=== PATIENT | female | born 1940 | race Caucasian/White ===

== ENCOUNTER → 2016-08-30 | Outpatient (CLI) | payer MEDICARE, OTHER | END | disposition home or self-care (01) | LOC: GMAB 10:37 | PROVIDERS: ATTEND Family Medicine | DX: E03.9 Hypothyroidism, unspecified (principal) ==

== ENCOUNTER → 2017-07-25 | Outpatient (CLI) | payer MEDICARE, OTHER ==
--- NOTE | 2017-07-25 10:03 | RAD ---
EXAM DESCRIPTION: Hand,Right 3 Views CLINICAL HISTORY: 77 years Female, PAIN COMPARISON: None. FINDINGS: 3 views of the left hand show no acute fracture or malalignment. There is severe joint space narrowing and productive change involving multiple interphalangeal joints. Gull-wing appearance is noted at several locations, most apparent at the fourth PIP joint suggestive of erosive osteoarthritis. Additional joint space narrowing is noted at the triscaphe and first CMC joints. The soft tissues are unremarkable. IMPRESSION: Advanced polyarticular degenerative changes as detailed above. Erosive osteoarthritis should also be considered. Electronically signed by: Judson Hamilton MD 07/25/2017 10:01 AM CDT
--- NOTE | 2017-07-25 10:04 | RAD ---
EXAM DESCRIPTION: Fingers,Right CLINICAL HISTORY: 77 years Female, PAIN COMPARISON: None. FINDINGS: 3 views of the right index finger show no acute fracture or malalignment. There is joint space narrowing and productive change involving the second PIP and DIP joints. Fairly advanced joint space narrowing involves the second MCP joint. No bony demineralization, and no definite subchondral erosion. No soft tissue abnormality. Degenerative changes at the triscaphe and first CMC joint are also noted. IMPRESSION: Advanced degenerative changes in the right index finger, worse at the second DIP joint. Electronically signed by: Judson Hamilton MD 07/25/2017 10:03 AM CDT
--- NOTE | 2017-07-25 11:14 | RAD ---
EXAM DESCRIPTION: Knee,Left Complete CLINICAL HISTORY: 77 years, Female, PAIN IN LEFT KNEE COMPARISON: None TECHNIQUE: 4 views of the left knee FINDINGS: No fracture or dislocation. Bones appear normally mineralized with normal trabecular pattern. Narrowed appearance of medial more than lateral compartments on frontal view. There is mild medial and lateral joint line spurring with spurring at the head of the proximal fibula. Lateral view shows normal position of the patella. Mild posterior patellar spurring. No suprapatellar knee joint effusion. Normal contour of quadriceps and patellar tendons. There is spurring at the tibial spines and in the intercondylar notch and along the posterior aspects of the femoral condyles and tibial plateau. No abnormal patellar tilt or subluxation on patellar sunrise view. Patellofemoral joint appears narrowed. IMPRESSION: Negative for fracture or dislocation. Electronically signed by: Mata Gaona MD 07/25/2017 11:13 AM CDT
--- NOTE | 2017-07-25 11:15 | RAD ---
EXAM DESCRIPTION: Pelvis CLINICAL HISTORY: 77 years Female, PAIN IN RIGHT HIP COMPARISON: None. TECHNIQUE: Single AP x-ray view of pelvis and hips FINDINGS: Marked degenerative changes are seen at the pubic symphysis with parasymphyseal sclerosis. There is mild narrowing of the hip joints. Degenerative changes are seen at the SI joints and the lower lumbar spine. Extensive phleboliths in the pelvis. No fracture or dislocation. IMPRESSION: Advanced degenerative changes in the pubic symphysis. Negative for fracture or dislocation. Electronically signed by: Mata Gaona MD 07/25/2017 11:14 AM CDT
== END ==
LOC: RAD 08:41
PROVIDERS: ATTEND Orthopaedic Surgery
DX: M25.561 Pain in right knee (principal); M25.562 Pain in left knee; M25.551 Pain in right hip; M25.552 Pain in left hip; M79.641 Pain in right hand; M79.644 Pain in right finger(s)

== ENCOUNTER → 2018-09-26 | Outpatient (CLI) | payer MEDICARE, OTHER | LOC: GMAE 14:13 | PROVIDERS: ATTEND Family Medicine | DX: R07.2 Precordial pain (principal) ==

== ENCOUNTER → 2018-10-11 | Outpatient (CLI) | payer MEDICARE, OTHER ==
--- NOTE | 2018-10-16 16:56 | MAM ---
EXAM DESCRIPTION: 3D Screening BILATERAL : Digital Mammography. CLINICAL HISTORY: 78 years Female SCREEN . No complaints. No personal or family history of breast cancer. Childbirth. Hysterectomy 30+ years ago. HRT 5 or more years ago.. Lifetime risk of developing breast cancer (Tyrer-Cuzick model)(%): 2.5. COMPARISON: Baseline study at this facility. TECHNIQUE: Bilateral CC and MLO projection full-field images, digital tomosynthesis mammographic technique. Bilateral digital 2-D full-field MLO images. CAD not available for tomosynthesis or 2-D images. FINDINGS: The breast parenchymal density pattern is: Heterogeneously dense breast tissue, which may obscure small masses. No skin thickening or nipple retraction. Bilateral vascular calcifications. Bilateral solitary parenchymal calcifications. Focal asymmetry versus mass density in the retroareolar left breast.. No new focal, stellate mass or density, focal asymmetry , and no suspicious microcalcifications right breast. IMPRESSION: BI-RADS CATEGORY: 0 - INCOMPLETE- Need additional imaging evaluation. FOLLOW-UP: Recall for additional imaging: Full-field diagnostic left breast LM tomosynthesis images. Targeted left breast ultrasound in the region of interest. Written communication concerning the IMPRESSION and Follow-up, will be mailed to the patient and referring health care provider. Electronically signed by: Armando Lopez MD 10/16/2018 4:54 PM CDT
== END ==
LOC: MAMMO 10:58
PROVIDERS: ATTEND Family Medicine
DX: Z12.31 Encounter for screening mammogram for malignant neoplasm of breast (principal)

== ENCOUNTER 2019-02-01 17:57 | Emergency (ER) | payer MEDICARE, OTHER ==
--- NOTE | 2019-02-01 18:08 | ED.PDOC ---
History of Present Illness - General Time Seen by Provider: 02/01/19 18:01 - History of Present Illness Initial Comments: 78 year old female with present to the er after a fall. patient fell from her porch down some stairs. patient did not loose consciousness, cant recall hitting her head, but admits landing on her left wrist patient arrived POV, and is walking on a steady gait there is an obvious deformity seen on initial evaluation Allergies/Adverse Reactions: Allergies NO KNOWN ALLERGY Allergy (Verified 10/15/12 14:48) Home Medications: Ambulatory Orders Alendronate Sodium [Fosamax] 70 mg PO WKLY 11/12/13 Amlodipine Besylate-Benazepril [Lotrel 5-10 mg] 1 cap PO DAILY 11/12/13 Estradiol 2 mg PO DAILY 11/12/13 Gabapentin 300 mg PO BEDTIME 11/12/13 Hydrochlorothiazide 12.5 mg PO DAILY 11/12/13 Levothyroxine Sodium 100 each PO DAILY 11/12/13 Nortriptyline HCl 100 mg PO BEDTIME 11/12/13 Pantoprazole Tablet [Protonix] 40 mg PO DAILY 11/12/13 Prednisone 2.5 mg PO DAILY 11/12/13 Famotidine [Pepcid AC Maximum Strengt] 20 mg PO BID 5 Days #10 tab 02/01/19 Naproxen [EC-Naproxen] 500 mg PO BID 5 Days #10 tab 02/01/19 Review of Systems - Review of Systems Constitutional: Denies: chills, diaphoresis, fever, malaise EENTM: Denies: eye pain, blurred vision, tearing, ear pain, ear discharge, nose pain, nose congestion, throat pain, throat swelling, mouth pain, mouth swelling Respiratory: Denies: cough, orthopnea, short of breath, stridor, wheezing Cardiology: Denies: chest pain, edema, palpitations, syncope Gastrointestinal/Abdominal: Denies: abdominal pain, diarrhea, nausea, vomiting Genitourinary: Denies: discharge, dysuria, frequency, hematuria, pain Musculoskeletal: Denies: back pain, gout, joint pain, joint swelling, muscle pain, muscle stiffness, neck pain Skin: Denies: change in color, change in hair/nails, dryness, lesions, lumps, rash Neurological: Denies: anxiety, depressed, emotional problems, headache, numbne ss, paresthesia, pre-existing deficit, tingling, tremors, weakness Endocrine: Denies: excessive sweating, flushing, intolerance to cold, intolerance to heat, increased hunger, increased thirst, increased urine, unexplained weight gain, unexplained weight loss Hematologic/Lymphatic: Denies: anemia, blood clots, easy bleeding, easy bruising, swollen glands Past Medical History (General) - Patient Medical History Hx Congestive Heart Failure: No Hx Diabetes: No Family Medical History - Family History Mother Family History: No Known Physical Exam - Physical Exam General Appearance: Alert, Well Developed, Well Groomed, Well Hydrated, Well Nourished Eyes, Ears, Nose, Throat Exam: PERRL/EOMI, other - small abrasion seen in the left cheek Neck: non-tender, full range of motion, supple Cardiovascular/Respiratory: regular rate, rhythm, no M/R/G, normal peripheral pulses, no JVD, normal breath sounds, no respiratory distress Abdominal Exam: non-tender, no organomegaly, no hernia Back Exam: normal inspection, no CVA tenderness Shoulder Exam: normal inspection Elbow/Forearm Exam: normal inspection Wrist Exam: pain - deformity noted on patient left wrist with good pulses, , swelling Hand Exam: normal inspection Mental Status: alert, oriented x 3, depressed affect Skin Exam: normal color, warm/dry Progress - Progress Progress: 02/01/19 18:09 this is a patient that presents after mechanical fall, patient with obvious wrist deformity since on this could take as a distracting injury, and there is evidence of facial trauma, im going to order a head and cervical spine ct 02/01/19 19:18 patient was done without complications, 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 Departure - Departure Clinical Impression: Colles' fracture of left radius Qualifiers: Encounter type: initial encounter Fracture type: closed Qualified Code(s): S52.532A - Colles' fracture of left radius, initial encounter for closed fracture Disposition: Discharge to Home or Self Care Condition: Fair Instructions: Colles' Fracture (DC) Referrals: AIDA YORK MD [Primary Care Provider] - 1-2 Weeks Ruel Reddy MD [Active Staff] - 1-2 Days Prescriptions: Famotidine [Pepcid AC Maximum Strengt] 20 mg PO BID 5 Days #10 tab Naproxen [EC-Naproxen] 500 mg PO BID 5 Days #10 tab Home Medications: Ambulatory Orders Alendronate Sodium [Fosamax] 70 mg PO WKLY 11/12/13 Amlodipine Besylate-Benazepril [Lotrel 5-10 mg] 1 cap PO DAILY 11/12/13 Estradiol 2 mg PO DAILY 11/12/13 Gabapentin 300 mg PO BEDTIME 11/12/13 Hydrochlorothiazide 12.5 mg PO DAILY 11/12/13 Levothyroxine Sodium 100 each PO DAILY 11/12/13 Nortriptyline HCl 100 mg PO BEDTIME 11/12/13 Pantoprazole Tablet [Protonix] 40 mg PO DAILY 11/12/13 Prednisone 2.5 mg PO DAILY 11/12/13 Famotidine [Pepcid AC Maximum Strengt] 20 mg PO BID 5 Days #10 tab 02/01/19 Naproxen [EC-Naproxen] 500 mg PO BID 5 Days #10 tab 02/01/19 Additional Instructions: keep extremity elevated and follow up with ortho
[2019-02-01 18:11] VITALS: BP 133/73; TEMP 97.5; O2SAT 97
[2019-02-01] MEDS ORDERED: HYDROmorphone HCL INJ 2 MG/ML VIAL IM ONE (18:20)
[2019-02-01] MEDS ORDERED: ONDANSETRON 4 MG TAB PO ONE (18:20)
[2019-02-01] MEDS ORDERED: ONDANSETRON ODT 8 MG TAB SL ONE (18:25)
[2019-02-01] MEDS ORDERED: LIDOCAINE 1% 10 ML VIAL INJ ONE ×2 (18:26→18:27)
--- NOTE | 2019-02-01 18:49 | CT ---
EXAM DESCRIPTION: Head CLINICAL HISTORY: 78 years Female fall TECHNIQUE: Axial contrast CT head with coronal and sagittal reformats. All CT scans at this facility use dose modulation, iterative reconstruction, and/or weight based dosing when appropriate to reduce radiation dose to as low as reasonably achievable. COMPARISON: None. FINDINGS: Diffuse parenchymal volume loss. Chronic small vessel disease. No intracranial hemorrhage, midline shift, mass, mass effect, hydrocephalus or extra-axial fluid collection. No obvious large territorial infarction. No abnormal enhancement following contrast administration. Orbits are normal. Paranasal sinuses and mastoid air cells are clear. Osseous structures and soft tissues are unremarkable. IMPRESSION: No acute findings. Electronically signed by: Avel Schroeder MD 02/01/2019 6:47 PM CDT
--- NOTE | 2019-02-01 18:54 | CT ---
EXAM DESCRIPTION: Cervical Spine CLINICAL HISTORY: 78 years Female fall TECHNIQUE: Noncontrast cervical spine CT with sagittal and coronal reconstructions. All CT scans at this facility use dose modulation, iterative reconstruction, and/or weight based dosing when appropriate to reduce radiation dose to as low as reasonably achievable. COMPARISON: None FINDINGS: No acute fracture. Alignment is anatomic. Multilevel degenerative changes. No high-grade spinal canal stenosis. Soft tissues are unremarkable. Visualized lung apices are clear. IMPRESSION: No acute findings. Electronically signed by: Avel Schroeder MD 02/01/2019 6:52 PM CDT
--- NOTE | 2019-02-01 18:58 | RAD ---
EXAM DESCRIPTION: Wrist, left 3 Views; 3 views CLINICAL HISTORY: 78 years Female, FALL COMPARISON: None. FINDINGS: Comminuted, impacted and intra-articular distal radius fracture with dorsal displacement of the distal fracture fragments and carpal bones. Displaced styloid process fracture. Severe degenerative changes of the first carpometacarpal joint. Cystic changes of the lunate. Diffuse surrounding soft tissue swelling. IMPRESSION: Distal radius and ulna fractures as described above. Electronically signed by: Avel Schroeder MD 02/01/2019 6:56 PM CDT
--- NOTE | 2019-02-01 19:22 | RAD ---
: 1940. Technique: 3 views of the left wrist. Clinical history: post reduction . Findings: Comparing to previous exam today at 6:13 PM. Moderate soft tissue swelling. Comminuted impacted fracture distal radius. Improved alignment after external reduction. Slightly displaced 5 mm ulnar styloid fracture avulsion. No dislocation. Osteopenia. Severe narrowing of the first carpometacarpal joint with osteophyte and sclerosis. Remodeling of the trapezoid and trapezium noted. Impression: 1. Improved alignment distal radial fracture. Ulnar styloid fracture. Electronically signed by: Jose Ibarra MD 02/01/2019 7:21 PM CDT
== END 2019-02-01 19:36 | disposition home or self-care (01) ==
LOC: ER 17:57
DX: S52.532A Colles' fracture of left radius, initial encounter for closed fracture (principal); S00.81XA Abrasion of other part of head, initial encounter; M47.812 Spondylosis without myelopathy or radiculopathy, cervical region; W10.9XXA Fall (on) (from) unspecified stairs and steps, initial encounter; Y92.008 Other place in unspecified non-institutional (private) residence as the place of occurrence of the external cause; Z79.899 Other long term (current) drug therapy
CPT/HCPCS: 70450; 72125; 73110; J1170

== ENCOUNTER → 2019-02-12 | Outpatient (CLI) | payer MEDICARE, OTHER ==
--- NOTE | 2019-02-12 15:35 | RAD ---
EXAM DESCRIPTION: Wrist,Left 3 Views CLINICAL HISTORY: 78 years Female, CLOSED FX OF DISTAL RADIUS COMPARISON: Radiographs of the left wrist dated 02/01/2019. FINDINGS: The visualized bones are well-mineralized. Comminuted fracture of the distal metaphysis of the radius and ulnar styloid process are again identified. Diffuse soft tissue swelling of the wrist. IMPRESSION: Comminuted fracture of the distal metaphysis of the radius and ulnar styloid process are again identified. Electronically signed by: Linda Alfonso MD 02/12/2019 3:33 PM CDT
== END ==
LOC: RAD 10:10
PROVIDERS: ATTEND Orthopaedic Surgery
DX: S52.502D Unspecified fracture of the lower end of left radius, subsequent encounter for closed fracture with routine healing (principal)

== ENCOUNTER 2019-04-18 11:13 | Emergency (ER) | payer MEDICARE, OTHER ==
[2019-04-18 12:03] VITALS: O2SAT 94
--- NOTE | 2019-04-18 12:36 | RAD ---
EXAM DESCRIPTION: Chest,2 Views CLINICAL HISTORY: 79 years Female Cough COMPARISON: 09/26/2018. FINDINGS: The cardiomediastinal silhouette appears unremarkable. No consolidating infiltrates or pleural effusions. No pneumothorax. Degenerative changes in the spine. IMPRESSION: No acute abnormality is identified. Electronically signed by: Wayne Conrad MD 04/18/2019 12:35 PM [employer]
--- NOTE | 2019-04-18 12:40 | RAD ---
EXAM DESCRIPTION: Lumbar Spine 3 Views (accession [id number]), Sacrum Coccyx (accession [id number]) CLINICAL HISTORY: 79 years ,Female Fall COMPARISON: None. TECHNIQUE: Three views of the sacrum/coccyx and three views of the lumbar spine. FINDINGS: There is minimal curvature in the lumbar spine convex left. There is mild anterolisthesis of L5 on S1 likely degenerative. There are degenerative changes of the facets most pronounced in the lower lumbar spine. No definite acute fracture is identified. IMPRESSION: No acute fracture is identified. Electronically signed by: Wayne Conrad MD 04/18/2019 12:39 PM [facility]
--- NOTE | 2019-04-18 12:40 | RAD ---
EXAM DESCRIPTION: Lumbar Spine 3 Views (accession [id number]), Sacrum Coccyx (accession [id number]) CLINICAL HISTORY: 79 years ,Female Fall COMPARISON: None. TECHNIQUE: Three views of the sacrum/coccyx and three views of the lumbar spine. FINDINGS: There is minimal curvature in the lumbar spine convex left. There is mild anterolisthesis of L5 on S1 likely degenerative. There are degenerative changes of the facets most pronounced in the lower lumbar spine. No definite acute fracture is identified. IMPRESSION: No acute fracture is identified. Electronically signed by: Wayne Conrad MD 04/18/2019 12:39 PM [facility]
--- NOTE | 2019-04-18 13:38 | ED.PDOC ---
History of Present Illness - General Chief Complaint: Back Pain or Injury Stated Complaint: back pain and cough, Time Seen by Provider: 04/18/19 11:44 - History of Present Illness Initial Comments: 79yo F presents for evaluation of upper respiratory congestion and cough (onset 1 week ago), as well as buttock and low back discomfort s/p fall (3 days ago). The patient believed her respiratory symptoms initially were related to a llergies, but symptoms have been persistent despite OTC treatment. She denies SOB or fever. No sick contacts. The patient's fall was from standing 3 days ago. She fell onto her buttock on a carpeted surface. She has had persistent tailbone discomfort since that time. No numbness, weakness, significant back pain. She denies syncope, headache, neck pain. No other reported issues. Allergies/Adverse Reactions: Allergies NO KNOWN ALLERGY Allergy (Verified 10/15/12 14:48) Home Medications: Ambulatory Orders Estradiol 2 mg PO DAILY 11/12/13 Levothyroxine Sodium 100 each PO DAILY 11/12/13 Azithromycin Tab [Zithromax Tab] 250 mg PO DAILY #4 tab 04/18/19 Buspirone HCl [Buspirone Hydrochloride] 7.5 mg PO 04/18/19 Desvenlafaxine [Desvenlafaxine ER] 50 mg PO 04/18/19 Guaifenesin 400 mg PO 04/18/19 Review of Systems - Review of Systems Constitutional: Denies: chills, fever EENTM: States: nose congestion. Denies: eye pain, double vision, ear pain, throat pain Respiratory: States: cough. Denies: short of breath, wheezing Cardiology: Denies: chest pain, edema, palpitations Gastrointestinal/Abdominal: Denies: abdominal pain, nausea Genitourinary: Denies: dysuria, frequency Musculoskeletal: States: back pain, other - Buttock/tailbone pain. Denies: joint pain, joint swelling, neck pain Skin: Denies: change in color, rash Neurological: Denies: headache, numbness, paresthesia, weakness Endocrine: States: no symptoms reported Hematologic/Lymphatic: States: no symptoms reported Past Medical History (General) - Patient Medical History Hx Seizures: No Hx Stroke: No Hx Dementia: No Hx Asthma: No Hx of COPD: No Hx Cardiac Disorders: No Hx Congestive Heart Failure: No Hx Pacemaker: No Hx Hypertension: Yes Hx Thyroid Disease: Yes Hx Diabetes: No Hx Gastroesophageal Reflux: No Hx Renal Disease: No Hx Cancer: No Hx of HIV: No Hx Hepatitis C: No Hx MRSA: No Surgical History: appendectomy, Hysterectomy, other - Vaccination History Hx Tetanus, Diphtheria Vaccination: Yes Hx Influenza Vaccination: Yes Hx Pneumococcal Vaccination: Yes Immunizations Up to Date: No - Social History Hx Tobacco Use: No Hx Chewing Tobacco Use: No Hx Alcohol Use: No Hx Substance Use: No Hx Substance Use Treatment: No Hx Depression: No Feels Threatened In Home Enviroment: No Feels Threatened In a Relationship: No Hx Physical Abuse: No Hx Emotional Abuse: No Hx Suspected Abuse: No - Activities of Daily Living Hospice Agency (if applicable):: None - Female History Patient is a Female of Child Bearing Age (10 -59 yrs old): No Family Medical History - Family History Mother Family History: No Known Physical Exam - Physical Exam General Appearance: Alert, Comfortable, No apparent distress Ears, Nose, Throat: normal pharynx, nasal congestion Neck: non-tender, full range of motion, supple Respiratory: chest non-tender, lungs clear, no respiratory distress, other - Intermittent dry cough Cardiovascular/Chest: normal peripheral pulses, regular rate, rhythm, no edema Gastrointestinal/Abdominal: non tender, soft, rebound Back Exam: normal inspection, no CVA tenderness, no vertebral tenderness, other - Lumbar muscular tenderness Extremity: normal range of motion, normal capillary refill, other - Sacral/coccyx tenderness, no crepitus. Pelvis is stable. No hip tenderness bilaterally. Neurologic: no motor/sensory deficits, alert, normal mood/affect, oriented x 3, other - Ambulatory, nl gait Skin Exam: normal color, warm/dry Progress - Progress Progress: DDX: URI, pneumonia, bronchitis, sinusitis, contusion, strain, sprain, fracture, allergies. 04/18/19 13:57 The patient feels improved at this time. No acute XR findings including XR sacral, lumbar and CXR. Given persistent URI symptoms > 1 weeks, will cover with abx. Initial dose was given in the ED. Results discussed with the patient extensively. She is comfortable with the plan for discharge and close outpatient followup. Discussed that occult ligament or bone injuries remain a possibility and that additional imagining may be indicated for persistent symptoms. Return warnings discussed. All questions answered. 04/18/19 14:01 [id number] - Results/Orders Results/Orders: Laboratory Results - last 24 hr 04/18/19 04/18/19 12:02 12:02 WBC 6.3 RBC 4.36 Hgb 13.0 Hct 40.0 MCV 91.8 MCH 29.9 MCHC 32.6 L RDW 13.4 Plt Count 165 MPV 8.8 Absolute Neuts (auto) 4.30 Absolute Lymphs (auto) 1.10 Absolute Monos (auto) 0.70 Absolute Eos (auto) 0.20 Absolute Basos (auto) 0.00 Neutrophils % 68.9 Lymphocytes % 17.5 L Monocytes % 10.5 H Eosinophils % 2.8 Basophils % 0.3 Sodium 135 Potassium 4.0 Chloride 100 L Carbon Dioxide 27 Anion Gap 12.0 BUN 13 Creatinine 0.62 BUN/Creatinine Ratio 21.0 H Random Glucose 112 H Serum Osmolality 271.0 L Calcium 8.8 - EKG/XRAY/CT XRAY: chest - No acute findings, see formal read. Departure - Departure Clinical Impression: Upper respiratory infection Qualifiers: URI type: unspecified URI Qualified Code(s): J06.9 - Acute upper respiratory infection, unspecified Contusion of coccyx Qualifiers: Encounter type: initial encounter Qualified Code(s): S30.0XXA - Contusion of lower back and pelvis, initial encounter Fall from standing Qualifiers: Encounter type: initial encounter Qualified Code(s): W19.XXXA - Unspecified fall, initial encounter Time of Disposition: 13:46 Disposition: Discharge to Home or Self Care Condition: Good Departure Forms: ED Discharge - Pt. Copy, Patient Portal Self Enrollment Instructions: DI for Low Back Pain, Bacterial Upper Respiratory Infection, Adult Referrals: AIDA YORK MD [Primary Care Provider] - 1-2 Weeks Prescriptions: Azithromycin Tab [Zithromax Tab] 250 mg PO DAILY #4 tab Home Medications: Ambulatory Orders Estradiol 2 mg PO DAILY 11/12/13 Levothyroxine Sodium 100 each PO DAILY 11/12/13 Azithromycin Tab [Zithromax Tab] 250 mg PO DAILY #4 tab 04/18/19 Buspirone HCl [Buspirone Hydrochloride] 7.5 mg PO 04/18/19 Desvenlafaxine [Desvenlafaxine ER] 50 mg PO 04/18/19 Guaifenesin 400 mg PO 04/18/19
[2019-04-18] MEDS ORDERED: AZITHROMYCIN 250 MG TAB PO ONE (13:42)
[2019-04-18 14:02] VITALS: TEMP 98.1
[2019-04-18 14:05] VITALS: BP 138/80
== END 2019-04-18 13:55 | disposition home or self-care (01) ==
LOC: ER 11:13
DX: J06.9 Acute upper respiratory infection, unspecified (principal); S30.0XXA Contusion of lower back and pelvis, initial encounter; I10 Essential (primary) hypertension; E07.9 Disorder of thyroid, unspecified; Z79.899 Other long term (current) drug therapy; W18.30XA Fall on same level, unspecified, initial encounter; Y92.9 Unspecified place or not applicable
CPT/HCPCS: 36415; 71046; 72100; 72220; 80048; 85025; Q0144

== ENCOUNTER → 2019-05-22 | Outpatient (CLI) | payer MEDICARE, OTHER | LOC: GMAE 10:23 | PROVIDERS: ATTEND Family Medicine | DX: E03.9 Hypothyroidism, unspecified (principal); I10 Essential (primary) hypertension; R73.09 Other abnormal glucose; E78.2 Mixed hyperlipidemia ==

== ENCOUNTER 2019-08-21 17:00 | Emergency (ER) | payer MEDICARE, OTHER ==
--- NOTE | 2019-08-21 17:27 | RAD ---
EXAM DESCRIPTION: Ankle,Left 2 x-ray Views CLINICAL HISTORY: 79 years, Female, pain after twisted COMPARISON: None. TECHNIQUE: AP/lateral/oblique x-ray views of the left ankle FINDINGS: On the frontal view, an oblique fracture through the lateral malleolus is seen extending to the lateral aspect of the ankle joint. The distal fracture fragment is displaced laterally approximately 4 mm. Comminution is minimal. Slight irregularity of the cortex of the medial malleolus could indicate a nondisplaced fracture here as well although this is not definite. On the oblique view may be helpful. There is moderate soft tissue swelling over the medial and lateral malleolus with widened appearance of the medial ankle joint space suggesting disruption of the deltoid ligament. Patellar dome appears intact. Lateral view shows intact appearance of the talus and calcaneus. Prominent plantar calcaneal spurring. Prominent dorsal degenerative spurring at the tarsal metatarsal joint. Correlate with x-rays of the foot. IMPRESSION: Oblique fracture of the lateral malleolus extending to the ankle joint. Abnormal medial malleolus and/or deltoid ligament. See above. Electronically signed by: Mata Gaona MD 08/21/2019 5:26 PM CDT
--- NOTE | 2019-08-21 17:28 | RAD ---
EXAM DESCRIPTION: Tibia/Fibula,Left x-ray two views CLINICAL HISTORY: 79 years Female, pain after trwisted COMPARISON: None. FINDINGS: Lateral view of the left tibia and fibula shows oblique fracture of the distal fibula. Tibia appears intact on the lateral view. On the frontal view, distal fibular fracture is well visualized. The medial malleolus appears intact on this view with slight linear calcification along the metaphysis. No acute appearing tibial fracture is evident. The proximal fibula appears intact. Degenerative changes at the knee. IMPRESSION: Distal fibular fracture. Electronically signed by: Mata Gaona MD 08/21/2019 5:27 PM CDT
--- NOTE | 2019-08-21 18:19 | CT ---
EXAM DESCRIPTION: CT Lower Extremity CLINICAL HISTORY: 79 years Female eval left ankle fracture TECHNIQUE: Axial noncontrast images acquired through the left ankle. Coronal and sagittal reformatted images also provided. This CT exam was performed according to our departmental dose-optimization program, which includes one or more of the following dose reduction techniques: automated exposure control, adjustment of the mA and/or kV according to patient size, and/or use of iterative reconstruction technique. COMPARISON: Correlation made with the radiographs obtained earlier the same day. FINDINGS: There is an acute, slightly comminuted, oblique sagittal fracture of the left distal fibular diaphysis. Inferiorly, fracture extends to the superolateral corner of the ankle mortise, where there is a 3 mm intra-articular fracture fragment. At the main fracture site there is 5 mm of lateral displacement. There are tiny avulsion fractures at the anterolateral and posterolateral margins of the distal tibia consistent syndesmotic injuries. There is slight widening of the posterior distal tibiofibular syndesmosis. There are punctate avulsion fractures lateral to the tip of the medial malleolus suggestive of deep deltoid ligamentous injury. There is slight widening of the medial portion of the ankle mortise. No other acute fracture. No dislocation. The talar dome appears intact. Chronic degenerative changes at the tarsometatarsal joints are severe at the bases of the second and third metatarsals. Joint spaces otherwise preserved. Soft tissue swelling about the ankle without soft tissue gas or foreign body. IMPRESSION: Acute, slightly comminuted, intra-articular fracture of the left distal fibular diaphysis. Injury of the distal tibiofibular syndesmosis with tiny tibial avulsion fractures. Likely acute injury of the deep deltoid with tiny medial malleolar avulsion fractures. Slight widening of the medial aspect of the ankle mortise. No dislocation. Chronic degenerative changes at the tarsometatarsal joints. Electronically signed by: Celeste Costello MD 08/21/2019 6:18 PM CDT
--- NOTE | 2019-08-21 18:26 | ED.PDOC ---
History of Present Illness - General Chief Complaint: Lower Extremity Injury Stated Complaint: lt ankle injury Time Seen by Provider: 08/21/19 17:09 Source: patient Exam Limitations: no limitations - History of Present Illness Initial Comments: The patient is an 79-year-old female presented emergency room secondary to a left ankle injury. Twisted it while mowing. She has significant lateral ankle swelling. Mild medial tenderness. She is neurovascularly at her baseline. No other injury. She did ambulate on it after. Timing/Duration: 1 hour Severity: moderate Improving Factors: immobilization Worsening Factors: movement Associated Symptoms: denies symptoms Allergies/Adverse Reactions: Allergies Codeine Adverse Reaction (Verified 08/21/19 17:25) causes serotonine syndrome Ibuprofen [From Advil] Adverse Reaction (Verified 08/21/19 17:25) causes serotonin syndrome Tramadol Adverse Reaction (Verified 08/21/19 17:25) causes serotonin syndrome Home Medications: Ambulatory Orders Estradiol 2 mg PO DAILY 11/12/13 Levothyroxine Sodium 100 each PO DAILY 11/12/13 Desvenlafaxine [Desvenlafaxine ER] 50 mg PO DAILY 04/18/19 Pcfvfylpaogqi-Bgkl-Stlxzzqdij [Fioricet] 1 ea PO Q8H PRN #21 tab 08/21/19 Irbesartan-Hydrochlorothiazide [Irbesartan/Hydrochlorothi 300-12.5 mg] 1 tablet PO DAILY 08/21/19 Review of Systems - Review of Systems Constitutional: States: no symptoms reported EENTM: States: no symptoms reported Respiratory: States: no symptoms reported Cardiology: States: no symptoms reported Gastrointestinal/Abdominal: States: no symptoms reported Genitourinary: States: no symptoms reported Musculoskeletal: States: see HPI Skin: States: no symptoms reported Neurological: States: no symptoms reported Endocrine: States: no symptoms reported All other Systems: No Change from Baseline Past Medical History (General) - Patient Medical History Hx Seizures: No Hx Stroke: No Hx Dementia: No Hx Asthma: No Hx of COPD: No Hx Cardiac Disorders: No Hx Congestive Heart Failure: No Hx Pacemaker: No Hx Hypertension: Yes Hx Thyroid Disease: Yes Hx Diabetes: No Hx Gastroesophageal Reflux: No Hx Renal Disease: No Hx Cancer: No Hx of HIV: No Hx Hepatitis C: No Hx MRSA: No Surgical History: Hysterectomy - Vaccination History Hx Tetanus, Diphtheria Vaccination: Yes Hx Influenza Vaccination: Yes Hx Pneumococcal Vaccination: Yes - Social History Hx Tobacco Use: No Hx Chewing Tobacco Use: No Hx Alcohol Use: No Hx Substance Use: No Hx Substance Use Treatment: No Hx Depression: No Hx Physical Abuse: No Hx Emotional Abuse: No Hx Suspected Abuse: No - Female History Patient is a Female of Child Bearing Age (10 -59 yrs old): No Family Medical History - Family History Mother Family History: No Known Physical Exam - Physical Exam General Appearance: Alert, Comfortable, No apparent distress Eye Exam: bilateral normal Ears, Nose, Throat: hearing grossly normal Neck: full range of motion, supple Respiratory: no respiratory distress, no accessory muscle use Cardiovascular/Chest: normal peripheral pulses, no edema, other - Regular rate Peripheral Pulses: dorsalis pedis,right: 2+, dorsalis pedis,left: 2+ Rectal Exam: deferred Extremity: normal range of motion, no pedal edema, no calf tenderness, normal capillary refill, other - See history of present illness 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 It appears that she has a fairly significant distal fibula fracture on the left. CT scan does not indicate any tibial fracture. There is mild irregularity of the ankle more T's on the x-ray possibly indicating a medial deltoid ligament disruption. Given the patient's age and mobility limitations, I am going to place the patient in a walking boot and she can use crutches additionally to help try and reduce weight on the injured lower extremity. I do want her to follow-up with orthopedics within the next few days for a second opinion to make sure that she is not going to require any surgical repair. She will be written for Fioricet for as needed use for pain control. ER warnings are given. rand [id number] - Results/Orders Results/Orders: X-rays of the left tib-fib and ankle show a distal fibula fracture with some mild distraction. There is also mild abnormality of the ankle mortise. CT scan of the ankle shows the distal fibula fracture but no evidence of any fracture of the tibia. Departure - Departure Clinical Impression: Fracture of distal fibula Qualifiers: Encounter type: initial encounter Fracture type: closed Fracture morphology: torus Laterality: left Qualified Code(s): S82.822A - Torus fracture of lower end of left fibula, initial encounter for closed fracture Disposition: Discharge to Home or Self Care Condition: Fair Departure Forms: ED Discharge - Pt. Copy, Patient Portal Self Enrollment Instructions: Ankle Fracture (DC) Diet: regular diet Activity: no exercise Referrals: AIDA YORK MD [Primary Care Provider] - 1-2 Weeks Prescriptions: Shsrpteugmdmv-Eznw-Xcsrqdfkya [Fioricet] 1 ea PO Q8H PRN #21 tab PRN Reason: Pain Home Medications: Ambulatory Orders Estradiol 2 mg PO DAILY 11/12/13 Levothyroxine Sodium 100 each PO DAILY 11/12/13 Desvenlafaxine [Desvenlafaxine ER] 50 mg PO DAILY 04/18/19 Xtyudxgrcrzzr-Btqs-Yzmugmbppc [Fioricet] 1 ea PO Q8H PRN #21 tab 08/21/19 Irbesartan-Hydrochlorothiazide [Irbesartan/Hydrochlorothi 300-12.5 mg] 1 tablet PO DAILY 08/21/19 Additional Instructions: The patient is an 79-year-old female presented emergency room secondary to injuring her left ankle. It appears that she has a fairly significant distal fibula fracture on the left. CT scan does not indicate any tibial fracture. There is mild irregularity of the ankle more T's on the x-ray possibly indicating a medial deltoid ligament disruption. Given the patient's age and mobility limitations, I am going to place the patient in a walking boot and she can use crutches additionally to help try and reduce weight on the injured lower extremity. I do want her to follow-up with orthopedics within the next few days for a second opinion to make sure that she is not going to require any surgical repair. She will be written for Fioricet for as needed use for pain control. ER warnings are given.
[2019-08-21 18:56] VITALS: BP 163/88; TEMP 98.9; O2SAT 98
== END 2019-08-21 18:56 | disposition home or self-care (01) ==
LOC: ER 17:00
DX: S82.822A Torus fracture of lower end of left fibula, initial encounter for closed fracture (principal); I10 Essential (primary) hypertension; X50.1XXA Overexertion from prolonged static or awkward postures, initial encounter; Y92.9 Unspecified place or not applicable

== ENCOUNTER → 2019-08-24 | Outpatient (CLI) | payer MEDICARE, OTHER ==
--- NOTE | 2019-08-24 10:36 | RAD ---
EXAM DESCRIPTION: Ankle,Left 3 Views CLINICAL HISTORY: 79 years Female, PAIN IN LEFT ANKLE COMPARISON: August 21, 2019 FINDINGS: Again seen is a slightly displaced lateral malleolar fracture which remains largely nonunited and not significantly changed from the prior exam. Bone fragment adjacent to the medial malleolus and lateral aspect of the tibial plafond likely representing additional fracture fragments. Slight asymmetry of the tibiotalar joint space with narrowing laterally. The talar dome is intact. Old nonunited fracture on the dorsal aspect of the midfoot, stable. Moderate-sized plantar calcaneal enthesophyte. IMPRESSION: Nonunited distal tibial and lateral malleolar fractures as detailed above, stable from August 13, 2019. Slight asymmetry of the tibiotalar joint suggestive of ligamentous injury. This is also unchanged from the prior exam. Degenerative calcification versus additional old nonunited fracture along the dorsal aspect of the midfoot. Electronically signed by: Judson Hamilton MD 08/24/2019 10:35 AM CDT
== END ==
LOC: RAD 09:41
PROVIDERS: ATTEND Orthopaedic Surgery
DX: S82.62XK Displaced fracture of lateral malleolus of left fibula, subsequent encounter for closed fracture with nonunion (principal); S82.302K Unspecified fracture of lower end of left tibia, subsequent encounter for closed fracture with nonunion; M89.9 Disorder of bone, unspecified; M25.872 Other specified joint disorders, left ankle and foot

== ENCOUNTER → 2019-09-03 | Outpatient (CLI) | payer MEDICARE, OTHER ==
--- NOTE | 2019-09-03 10:10 | RAD ---
EXAM DESCRIPTION: Ankle,Left 3 Views CLINICAL HISTORY: 79 years Female, CLOSED FX OF LATERAL MALLEOLUS COMPARISON: August 24, 2019 FINDINGS: Three views of the left ankle were obtained. Bony detail is obscured by artifact from superimposed material. Again seen is a moderately displaced lateral malleolar fracture without significant callus formation, unchanged from the previous exam. There is a faint calcification adjacent to the medial malleolus which is of uncertain acuity, no underlying donor site of this is also stable the prior exam. Degenerative calcification versus old nonunited fracture fragment along the dorsal aspect of the midfoot. Plantar calcaneal enthesophyte. Tibiotalar joint is anatomically aligned. IMPRESSION: Moderately displaced lateral malleolar fracture, nonunited and unchanged from 10 days prior. Additional thin calcification adjacent to the medial malleolus without underlying donor site, uncertain acuity. Degenerative changes. Electronically signed by: Judson Hamilton MD 09/03/2019 10:07 AM CDT
== END ==
LOC: RAD 09:34
PROVIDERS: ATTEND Orthopaedic Surgery
DX: S82.62XK Displaced fracture of lateral malleolus of left fibula, subsequent encounter for closed fracture with nonunion (principal)

== ENCOUNTER → 2019-09-24 | Outpatient (CLI) | payer MEDICARE, OTHER ==
--- NOTE | 2019-09-24 11:24 | RAD ---
EXAM DESCRIPTION: Ankle,Left 3 Views CLINICAL HISTORY: 79 years Female, CLOSED FRACTURE OF LATERAL MALLEOLUS LEFT COMPARISON: 09/03/2019. TECHNIQUE: AP, oblique and lateral radiographs. FINDINGS: The visualized bones appear well mineralized. Interval removal of the overlying orthopedic cast. Oblique fracture of the distal fibula is again noted with surrounding callus formation suggesting some degree of interval healing. No evidence of bony union. IMPRESSION: Oblique fracture of the distal fibula is again noted with surrounding callus formation suggesting some degree of interval healing. No evidence of bony union. Electronically signed by: Linda Alfonso MD 09/24/2019 11:23 AM CDT
== END ==
LOC: RAD 10:02
PROVIDERS: ATTEND Orthopaedic Surgery
DX: S82.65XD Nondisplaced fracture of lateral malleolus of left fibula, subsequent encounter for closed fracture with routine healing (principal)

== ENCOUNTER → 2019-11-12 | Outpatient (CLI) | payer MEDICARE, OTHER ==
--- NOTE | 2019-11-12 11:36 | RAD ---
Study: Three views of the Left Ankle. Indication: FRACTURE OF LATERAL MALLEOLUS Comparison: September 24, 2019 Impression: Obliquely oriented distal fibular metadiaphysis fracture redemonstrated with stable alignment. Progressive callus formation about fracture and along the distal tibiofibular syndesmosis, however the fracture remains incompletely united at this time. Persistent thin cortical avulsion and periostitis of the medial tibial metaphysis. Soft tissue swelling present. Advanced osteoarthritis of the midfoot. Calcaneal spurring at the Achilles tendon insertion and plantar fascia origin. Electronically signed by: Baljeet Devine MD 11/12/2019 11:34 AM CDT
== END ==
LOC: RAD 10:05
PROVIDERS: ATTEND Orthopaedic Surgery
DX: S82.65XD Nondisplaced fracture of lateral malleolus of left fibula, subsequent encounter for closed fracture with routine healing (principal); M19.072 Primary osteoarthritis, left ankle and foot; M89.9 Disorder of bone, unspecified; M77.32 Calcaneal spur, left foot; M79.9 Soft tissue disorder, unspecified

== ENCOUNTER → 2020-05-26 | Outpatient (CLI) | payer MEDICARE, OTHER | LOC: GMAE 10:29 | PROVIDERS: ATTEND Family Medicine | DX: E53.8 Deficiency of other specified B group vitamins (principal); E55.9 Vitamin D deficiency, unspecified; E03.9 Hypothyroidism, unspecified; I10 Essential (primary) hypertension; E78.2 Mixed hyperlipidemia; A69.29 Other conditions associated with Lyme disease; R73.03 Prediabetes ==